=== PATIENT | female | born 1955 | race Caucasian/White ===

== ENCOUNTER 2017-05-07 07:53 | Inpatient (IN) ==
[2017-05-07] MEDS ORDERED: DILTIAZEM 50 MG/10 ML VIAL IV STA (08:27)
[2017-05-07] MEDS ORDERED: DILTIAZEM INJ 100 MG in SODIUM CHLORIDE 0.9% 100 ML IV SCH (08:30)
[2017-05-07] MEDS ORDERED: DILTIAZEM 100 MG VIAL.ADD IV ONE (08:43)
[2017-05-07] MEDS ORDERED: DILTIAZEM 50 MG/10 ML VIAL IV ONE (08:43)
[2017-05-07] MEDS ORDERED: SODIUM CHLORIDE 0.9% 100 ML IV ONE (08:43)
[2017-05-07 09:07] LABS: Basophils # 0.1 10*3/uL (0.0-0.2); Basophils % 0.9 % (0.0-0.8); Eosinophils % 0.6 % (0.00-10.9); Hematocrit 43.4 VOL% (35.7-47.0); Hemoglobin 15.1 GM/DL (12.0-16.0); Immature Granulocytes % 0.2 %; Immature Granulocytes Absolute 0.01 #; Lymphocytes # 1.9 10*3/uL (1.4-4.0); Lymphocytes % 28.9 % (21.3-54.2); Mean Corpuscular HGB Conc 34.8 GM/DL (32-36); Mean Corpuscular Hemoglobin 32 PG (27-34); Mean Corpuscular Volume 91.9 FL (87-102); Mean Platelet Volume 10.7 FL (9.6-12.0); Monocytes # 0.6 10*3/uL (0.11-0.8); Monocytes % 9.4 % (1.7-12.7); Platelet Count 274 T/CUMM (130-400); Red Blood Count 4.72 MC/CUMM (3.8-5.5); Red Cell Distribution Width 12.2 % (9.3-17.3); White Blood Count 6.6 T/CUMM (4-12)
[2017-05-07 09:53] LABS: Alanine Aminotransferase 24 U/L (13-56); Albumin 3.9 G/DL (3.4-5.0); Alkaline Phosphatase 72 U/L (45-117); Aspartate Amino Transferase 21 U/L (0-37); Blood Urea Nitrogen 12 MG/DL (7-18); Calcium 9.2 MG/DL (8.5-10.1); Glucose 99 MG/DL (74-106); Osmolality,Calculated 278.4 MOS/KG (273-304); Potassium 4.8 MMOL/L (3.5-5.1); Sodium 140 MMOL/L (136-145); Total Protein 7.3 G/DL (6.4-8.3); Troponin I Only < 0.015 NG/ML (0.00-0.045)
[2017-05-07] MEDS ORDERED: ONDANSETRON 4 MG/2 ML VIAL IV PRN (10:40)
[2017-05-07] MEDS ORDERED: MAGNESIUM SULF RIDER 2 GM in PREMIX 1 EACH IV PRN (10:40)
[2017-05-07] MEDS ORDERED: MAGNESIUM SULF RIDER 4 GM in PREMIX 1 EACH IV PRN (10:40)
--- NOTE | 2017-05-07 10:40 | Emergency Department Note ---
Braydon Parker Brittany, am scribing for, and in the presence of, Lacho Chance MD 08:30. Robson Parker Doug C, MD, personally performed the services described in this documentation, ascribed by Kavya Bryson in my presence, and it is both accurate and complete . Arrival - Arrival Chief Complaint: Arrhythmia/Palpitations Stated Complaint: rapid heart rate ED Nursing Triage Note: Pt c/o heart racing and feeling tired since yesterday am. Mode of Arrival: Ambulatory Limitations: No Limitations Source: Patient, RN Notes Reviewed Time Seen by Provider: 05/07/17 08:26 - History of Present Illness HPI Narrative: Patient is a 61-year-old white female who presents to the emergency room complaining of palpitations. Patient states she has had trouble with palpitations off and on for the last 6 months most recently had an episode that began 3 days ago. Patient states she was seen here in the emergency room and placed on Eliquis metoprolol and flecainide. Patient states her heart spit up again last night she took an extra dose of metoprolol and flecainide without benefit. She denies any chest pain or shortness of breath but states she feels tired. She has not had any fever, chills or other abnormalities. She denies any weight changes, GI problems or rashes. Onset (ago): day(s) (1) Consistency: constant Allergies/Adverse Reactions: Allergies Allergy/AdvReac Type Severity Reaction Status Date / Time No Known Allergies Allergy Verified 05/23/16 06:20 Home Medications: Home Medications Medication Instructions Recorded Confirmed Type Apixaban [Eliquis] 5 mg PO BID #60 tablet 04/27/17 Rx Flecainide [Tambocor] 50 mg PO BID #60 tablet 04/27/17 Rx Metoprolol Tartrate Tab [Lopressor 25 mg PO BID #60 tablet 04/27/17 Rx Tab] Mirabegron [Myrbetriq] 25 mg PO QAM 04/27/17 04/27/17 History Naproxen Sodium [Aleve] 220 mg PO Q8H PRN 04/27/17 04/27/17 History Review of System - Review of System 12 point system: reviewed and no additional remarkable complaints except as stated - Review of System Constitutional: Absent: chills, fever Eyes: Absent: vision change Head/Ears/Nose/Throat: Absent: nasal drainage, sore throat Respiratory: Absent: respiratory distress Cardiovascular: Present: palpitations. Absent: chest pain Gastrointestinal: Absent: abdominal pain, nausea, vomiting, diarrhea, constipation, melena, hematochezia Genitourinary female: Absent: dysuria, frequency, urgency Musculoskeletal: Absent: arm pain, back pain, leg pain, neck pain Skin: Absent: rash Neurological: Absent: headache Psychiatric: Absent: anxiety, depression Hematological/Lymphatic: Absent: easy bleeding, easy bruising Medical,Surgical,& Family Hx - Medical History Cardio: History of: Cardiac Dysrhythmia (Irregular at times-Neg Checkup with Dr. Zhao) Neurology: No history of: Seizures HEENT: History of: Eye Problem (Cataracts; Glasses), HEENT Problems (Mild Sinus) Respiratory: No history of: Respiratory Problems (Flu Vac 2014) Gastrointestinal: History of: Polyps, Gastrointestinal Cancer (Cancerous Polyp) Musculoskeletal: History of: Musculoskeletal Problems (Arthritis Knees) Reproductive: History of: Reproductive Problems (Vaginal Dryness) Other: History of: Anesthesia Reactions (Nausea), Cancer (Cancerous Polyps) - Surgical History HEENT Surgeries: Patient denies: Eye Surgery (05/23/16 Sched for Lt Eye Dr. Croft) Abdominal Surgeries: Surgical HX of: Abdominal Surgery (Colon Resection 2009; Tummy Tuck; Liposuction), Colonoscopy (x2 Colon Scopes since 2009) - Social History Smoking Status: Never smoker Exam Vital Signs: Vital Signs Temperature 97.0 F L 05/07/17 09:11 Pulse Rate 128 H 05/07/17 09:11 Respiratory Rate 18 05/07/17 09:11 Blood Pressure 100/85 05/07/17 09:11 O2 Sat by Pulse Oximetry 100 05/07/17 09:05 - General General appearance: alert, in no apparent distress - Head Head exam: Present: atraumatic, normocephalic, normal inspection - Eye Eye exam: Present: normal appearance, PERRL, EOMI - ENT ENT exam: Present: normal exam, normal oropharynx - Neck Neck exam: Present: normal inspection, full ROM, trachea midline - Chest Chest inspection: Present: normal inspection, symmetric chest wall rise - Respiratory Respiratory exam: Present: normal lung sounds bilaterally. Absent: respiratory distress - Cardiovascular Cardiovascular exam: Present: normal rhythm, tachycardia, normal heart sounds. Absent: regular rate - Abdominal Exam Abdominal exam: Present: soft, normal bowel sounds. Absent: tenderness - Extremities Exam Extremities exam: Present: normal inspection - Back Exam Back exam: Present: normal inspection - Neurological Exam Neurological exam: Present: alert, oriented X3, CN II-XII intact. Absent: motor sensory deficit - Psychiatric Psychiatric exam: Present: normal affect, normal mood - Skin Skin exam: Present: warm, dry Course Course Narrative: Patient's clinical presentation, laboratory and electrocardiographic findings were discussed with Dr. Henson. Results - Labs CBC & BMP: 05/07/17 08:44 05/07/17 08:44 Lab Results: I have reviewed the patients labs Labs: Laboratory Tests 05/07/17 08:44 WBC 6.6 RBC 4.72 Hgb 15.1 Hct 43.4 Plt Count 274 Baso % (Auto) 0.9 H Laboratory Tests 05/07/17 08:44 Magnesium 2.1 Laboratory Tests 05/07/17 08:44 Sodium 140 Potassium 4.8 Chloride 108 H Carbon Dioxide 26 BUN 12 Creatinine 0.80 Glucose 99 Troponin I < 0.015 TSH 3rd Generation 2.340 - EKG EKG results: interpreted by ERMD EKG shows: tachycardia (Atrial flutter at 127 bpm) - Diagnostic Findings Procedure: Chest x-ray: report reviewed by me (Normal study) Disposition Clinical Impression: Atrial flutter Case discussed with: patient, patient's family Disposition: Still a Patient Condition: Stable Instructions: Atrial Flutter (ED) Time of Disposition: 10:40
[2017-05-07 11:42] LABS: Troponin I Only < 0.015 NG/ML (0.00-0.045)
--- NOTE | 2017-05-07 12:05 | XRay Report ---
Portable chest Exam date: 05/07/2017 8:27 AM Indication: Shortness of breath, cough Comparison: April 27, 2017 Findings: Cardiomediastinal contours are normal. Lungs are clear bilaterally. No acute osseous abnormalities. Visualized upper abdomen demonstrates no acute pathology. Impression: Normal chest PROCEDURE INTERPRETED AT [facility] DEPARTMENT OF RADIOLOGY Final Report Signed by: Ciaran Thompson
[2017-05-07] MEDS: DEXTROSE 5% NACL 0.45% 1,000 ML IV SCH (13:15)
[2017-05-07 14:08] LABS: Troponin I Only < 0.015 NG/ML (0.00-0.045)
--- NOTE | 2017-05-07 17:06 | EKG Report ---
Stationary ECG Study [facility] Test Date: 05/07/2017 9:21:28 AM Pat Name: ENEDINA BEAULIEU Department: Room: 295 Gender: F Research Staff Member: : 1955 Requested by: Murali Tucker Order Number: [id number] Reading MD: MINI AANND Intervals [place] Rate: 55 P: 999 MD: 0 QRS: 61 QRSD: 99 T: 70 QT: 437 QTc: 426 Interpretive Statements ATRIAL FLUTTER WITH CONTROLLED VENTRICULAR RESPONSE Electronically Signed On 05-07-17 20:43:05 CDT by MINI ANAND [email or web address]
[2017-05-07 18:08] LABS: Troponin I Only < 0.015 NG/ML (0.00-0.045)
--- NOTE | 2017-05-07 20:49 | Cardiology History & Physical ---
Assessment and Plan (1) Atrial flutter Status: Acute Assessment and plan: 1. 61-year-old WF with paroxysmal atrial flutter since September 2016, recently diagnosed severe MELODY May 04, 2017, who had palpitations persistently since the morning of October 06 it was noted this morning to have atrial flutter with heart rate in the 120s. Her heart rate was controlled with diltiazem infusion she is now converted to normal sinus rhythm and is asymptomatic. 2. Ms. Sue saw Dr. Napier 10 days ago and she was started on Eliquis and her pindolol was changed to metoprolol 25 mg twice daily with flecainide 50 mils twice daily. 3. Increase metoprolol to 50 mg p.o. 3 times daily, and wean off of diltiazem infusion. 4. Consult Dr. Napier and Dr. Dodson in the morning Current Visit: Yes (2) Sleep disorder Status: Chronic Current Visit: No History of Present Illness Chief complaint: palp History of present illness: Ms. Sue is a 61 year old female followed by Dr. Page for paroxysmal atrial flutter since September 2016. She has had in July she had a knee problem and has been sedentary since that time. She denies significant daytime somnolence but was found to have severe sleep apnea last week with follow-up in June. She has had palpitations off and on lasting up to an hour or so, but had one starting yesterday morning lasted all day long. She called [facility] and was told to go to the emergency room so she called Dr. Page at home who told her to take her medicine early. Her palpitations have resolved so she came to the ER this morning was found to be in atrial flutter with heart rate in the 120s. She started diltiazem infusion and now is feeling better. She actually converted to normal sinus rhythm this evening. She has not had any chest discomfort dizziness presyncope or syncope. She does have some fatigue related to it. She is not having swelling orthopnea. Home Medications Medication Instructions Recorded Confirmed Type Apixaban [Eliquis] 5 mg PO BID #60 tablet 04/27/17 05/07/17 Rx Flecainide [Tambocor] 50 mg PO BID #60 tablet 04/27/17 05/07/17 Rx Metoprolol Tartrate Tab [Lopressor 25 mg PO BID #60 tablet 04/27/17 05/07/17 Rx Tab] Allergies Allergy/AdvReac Type Severity Reaction Status Date / Time No Known Allergies Allergy Verified 05/23/16 06:20 Medical,Surgical,& Family Hx - Medical History Cardio: History of: Cardiac Dysrhythmia (Irregular at times-Neg Checkup with Dr. Zhao) Neurology: No history of: Seizures HEENT: History of: Eye Problem (Cataracts; Glasses), HEENT Problems (Mild Sinus) Respiratory: No history of: Respiratory Problems (Flu Vac 2014) Gastrointestinal: History of: Polyps, Gastrointestinal Cancer (Cancerous Polyp) Musculoskeletal: History of: Musculoskeletal Problems (Arthritis Knees) Reproductive: History of: Reproductive Problems (Vaginal Dryness) Other: History of: Anesthesia Reactions (Nausea), Cancer (Cancerous Polyps) - Surgical History HEENT Surgeries: Patient denies: Eye Surgery (05/23/16 Sched for Lt Eye Dr. Croft) Abdominal Surgeries: Surgical HX of: Abdominal Surgery (Colon Resection 2009; Tummy Tuck; Liposuction), Colonoscopy (x2 Colon Scopes since 2009) - Social History Smoking Status: Never smoker Frequency of Alcohol Use: Occasionally Cardiology Physical Exam - Constitutional Vitals: Vital Signs Temp Pulse Resp BP Pulse Ox 97.9 F 76 18 113/65 94 L 05/07/17 16:00 05/07/17 16:00 05/07/17 16:00 05/07/17 16:00 05/07/17 16:00 Intake and Output 05/07/17 05/07/17 05/07/17 07:59 15:59 23:59 Intake Total 240 / 240 Balance 240 / 240 Intake: Oral 240 / 240 Other: Weight 77.111 kg 77.111 kg Patient Weight 05/07/17 23:59 Weight 77.111 kg General appearance: no acute distress, over weight - Head Head exam: Present: normal inspection, normocephalic, atraumatic - Neck Neck exam: Present: normal inspection - Cardiovascular Cardiovascular exam: Present: regular rate and rhythm. Absent: diastolic murmur , systolic murmur - GI/Abdominal GI/Abdominal exam: Absent: tenderness - Extremities Exam Extremities exam: Absent: edema - Neurological Exam Neurological exam: Present: alert, oriented X3 Result/EKG - Labs CBC & BMP: 05/07/17 08:44 05/07/17 08:44 Labs: Laboratory Results - last 24 hr 05/07/17 05/07/17 05/07/17 08:44 08:44 08:44 WBC 6.6 RBC 4.72 Hgb 15.1 Hct 43.4 MCV 91.9 MCH 32 MCHC 34.8 RDW 12.2 Plt Count 274 MPV 10.7 Neut % (Auto) 60.0 Lymph % (Auto) 28.9 [place] % (Auto) 9.4 Eos % (Auto) 0.6 Baso % (Auto) 0.9 H Neut # (Auto) 4.0 Lymph # (Auto) 1.9 [place] # (Auto) 0.6 Eos # (Auto) 0.0 Baso # (Auto) 0.1 Immature Gran % 0.2 Nucleated RBC % 0.0 Immature Gran # 0.01 Nucleated RBCs # 0.00 Immature Plt Fraction 0.0 Sodium 140 Potassium 4.8 Chloride 108 H Carbon Dioxide 26 Anion Gap 10.8 BUN 12 Creatinine 0.80 GFR Calculation 88 BUN/Creatinine Ratio 15.00 Glucose 99 Calculated Osmolality 278.4 Calcium 9.2 Magnesium 2.1 Total Bilirubin 0.80 AST 21 ALT 24 Alkaline Phosphatase 72 Total Creatine Kinase CK-MB (CK-2) Troponin I < 0.015 Total Protein 7.3 Albumin 3.9 Globulin 3.4 Albumin/Globulin Ratio 1.1 TSH 3rd Generation 2.340 05/07/17 05/07/17 05/07/17 11:00 13:31 16:39 WBC RBC Hgb Hct MCV MCH MCHC RDW Plt Count MPV Neut % (Auto) Lymph % (Auto) [place] % (Auto) Eos % (Auto) Baso % (Auto) Neut # (Auto) Lymph # (Auto) [place] # (Auto) Eos # (Auto) Baso # (Auto) Immature Gran % Nucleated RBC % Immature Gran # Nucleated RBCs # Immature Plt Fraction Sodium Potassium Chloride Carbon Dioxide Anion Gap BUN Creatinine GFR Calculation BUN/Creatinine Ratio Glucose Calculated Osmolality Calcium Magnesium Total Bilirubin AST ALT Alkaline Phosphatase Total Creatine Kinase 57 54 54 CK-MB (CK-2) 1.1 1.0 1.1 Troponin I < 0.015 < 0.015 < 0.015 Total Protein Albumin Globulin Albumin/Globulin Ratio TSH 3rd Generation
[2017-05-07] MEDS ORDERED: APIXABAN 5 MG TABLET PO SCH (21:00)
[2017-05-07] MEDS: METOPROLOL TARTRATE 50 MG TABLET PO SCH (21:58)
[2017-05-07] MEDS: APIXABAN 5 MG TABLET PO SCH (21:59)
[2017-05-07] MEDS: FLECAINIDE 50 MG TABLET PO SCH (21:59)
[2017-05-08] MEDS: DEXTROSE 5% NACL 0.45% 1,000 ML IV SCH ×2 (02:01→16:20)
--- NOTE | 2017-05-08 07:31 | EKG Report ---
Stationary ECG Study [facility] Test Date: 05/08/2017 7:33 AM Pat Name: ENEDINA BEAULIEU Department: Room: 295 Gender: F Quick Service Technician: CRISTINA : 1955 Requested by: Jasvir Thornton Order Number: [id number] Reading MD: TRE BELTRAN Intervals [place] Rate: 59 P: 66 [place]: 232 QRS: 66 QRSD: 103 T: 65 QT: 439 QTc: 438 Interpretive Statements SINUS RHYTHM WITH PROLONGED [place] INTERVAL Electronically Signed On 05-12-17 06:23:38 CDT by TRE BELTRAN [id number]
[2017-05-08] MEDS ORDERED: DIAZEPAM 5 MG TABLET PO ONE (08:30)
[2017-05-08] MEDS: PANTOPRAZOLE 40 MG TABLET PO SCH (08:58)
--- NOTE | 2017-05-08 12:09 | Cardiology Progress Note ---
<Rosana Palmer - Last Filed: 05/08/17 12:05> Assessment and Plan (1) Paroxysmal atrial flutter Status: Chronic Assessment and plan: SEE PLAN OF CARE LISTED BELOW. Current Visit: Yes (2) Chronic anticoagulation Status: Chronic Assessment and plan: SEE PLAN OF CARE LISTED BELOW. Current Visit: Yes (3) Sleep disorder Status: Chronic Assessment and plan: SEE PLAN OF CARE LISTED BELOW. Current Visit: No Cardiology - PN: Subj Interval history: SUMMARY Ms. Sue, 61-year-old female with past medical history of paroxysmal atrial flutter. She presented to [facility] [place] with complaints of palpitations and heart racing. She was noted to be in atrial flutter rapid ventricular response. Metoprolol was added for rate control. She converted on her own May 07, 2017. Dr. Cano was consulted to see patient this hospitalization and plans for ablation 05/08/17. 2016 Patient was seen and examined on the telemetry unit. She converted from atrial flutter to normal sinus rhythm yesterday evening. She is tolerating metoprolol well. She is chronically anticoagulated with Eliquis 5 [address] twice daily. Dr. Cano was consulted to see patient today. He plans to do ablation later today. She is currently n.p.o. She is without complaints. Denies heart racing /palpitations. Denies chest pain, heaviness or tightness. Denies shortness of breath. She is hemodynamically stable. At this point, we will continue with current plan of care. I will further discuss with Dr. Mancera and await his additional recommendations. IMPRESSION AND PLAN: 1. ATRIAL FLUTTER WITH RAPID VENTRICULAR RESPONSE - History of paroxysmal atrial flutter. She has since converted back to normal sinus rhythm. Electrolytes optimized. Plan for ablation today per Dr. Cano. N.p.o. 2. CHRONIC ANTICOAGULATION - Patient is chronically anticoagulated with Eliquis for her atrial flutter. This will be continued for stroke prevention. 3. OBSTRUCTIVE SLEEP APNEA - She has been diagnosed with obstructive sleep apnea. However, she cannot get her CPAP machine until June. Sleep center has been consulted to assist with this. Exam (Progress Note) - Constitutional Vitals: Period Temp Pulse Resp BP Sys/Frey Pulse Ox Last 24 Hr 97.1 F-98.7 F 51-76 16-20 95-113/53-68 94-99 Exam: General: Appears well with no apparent distress. Pleasant and cooperative. Appears comfortable. HEENT: PERRL, normocephalic, atraumatic. Mucous membranes moist. No jaundice noted. Conjunctiva moist and clear, sclerae anicteric Neck: No JVD/HJR, no thyromegaly or lymphadenopathy noted. No carotid bruit appreciated Cardiac: Regular rate and rhythm. No murmur rub or gallop. Lungs: Clear to auscultation without accessory muscle use to assist the respiratory pattern. Not requiring oxygen. Abdomen: Soft, bowel sounds normoactive. Nontender and nondistended. No abdominal bruit or thrill noted. No masses noted. Extremities: No clubbing, cyanosis noted. No edema noted. Upper extremity pulses 2+. Lower extremity pulses 2+. Capillary refill less than 3 seconds. Skin: No unusual lesions or rashes. No skin breakdown appreciated. Neuro: Awake, alert and oriented 3. Moves all extremities well without hemiparesis or paralysis. No essential tremor is appreciated. Result/EKG - Labs CBC & BMP: 05/07/17 08:44 05/07/17 08:44 Lab Results: I have reviewed the past 24 hour labs Labs: Laboratory Results - last 24 hr 05/07/17 05/07/17 13:31 16:39 Total Creatine Kinase 54 54 CK-MB (CK-2) 1.0 1.1 Troponin I < 0.015 < 0.015 Specialty Discharge - Follow Up or Referrals <Zaki Mancera - Last Filed: 05/08/17 19:17> Cardiology - PN: Subj Interval history: Patient personally interviewed and examined chart reviewed. Have reviewed this with Rosana Palmer NP. Patient is stable post ablation this afternoon. She is doing well continue present therapy. Hopefully home soon. Exam (Progress Note) - Constitutional Vitals: Period Temp Pulse Resp BP Sys/Frey Pulse Ox Last 24 Hr 97.1 F-98.7 F 51-73 16-20 95-130/53-73 94-99 Result/EKG - Labs CBC & BMP: 05/07/17 08:44 05/07/17 08:44 Labs: Laboratory Results - last 24 hr 05/08/17 13:18 Urine Color Straw Urine Appearance Clear Urine pH 6.0 Ur Specific Julian 1.008 Urine Protein Negative Urine Glucose (UA) Negative Urine Ketones Negative Urine Blood Small Urine Nitrate Negative Urine Bilirubin Negative Urine Urobilinogen < 2.0 H Urine Leukocytes Negative Urine RBC 1 Urine WBC <1 Ur Squamous Epith Cells Occasional Ur Culture Indicated? Not indicated
--- NOTE | 2017-05-08 12:35 | Sleep Medicine Consult ---
Assessment and Plan (1) Obstructive sleep apnea Status: Acute Assessment and plan: This patient does have moderate obstructive sleep apnea with significant O2 desaturation into the 70s. We will go ahead and initiate auto titration CPAP tonight and see if we can get her best pressure on her. We will go ahead and set her up for auto titration CPAP at discharge. She will be scheduled for follow-up in the sleep clinic for compliance and results. Thank you for this consult. Current Visit: Yes (2) Atrial fibrillation Status: Resolved Assessment and plan: Untreated sleep apnea certainly can contribute to difficulty managing atrial fib. Treating the sleep apnea may help decrease recurrence. Current Visit: No (3) Hypertension Status: Chronic Assessment and plan: The prevalence rate for obstructive sleep apnea patients with hypertension is 35 %. That rate can be as high as 80% in patients who require 4 or more medications for blood pressure control. Current Visit: No History of Present Illness Chief complaint: Obstructive sleep apnea History of present illness: Ms. Sue is a 61 year old female who just recently underwent sleep study evaluation on 05/04/2017 and was found to have moderate obstructive sleep apnea, having a diagnostic AHI of 20.3 with O2 desaturation to lows of 77%. She had been seen in sleep clinic consultation the week prior to that. I ran into her at the [facility] Monday afternoon and reviewed her sleep study with her and her . The next day, she developed issues with atrial fibrillation with rapid ventricular response and was admitted to the hospital. She is set up to undergo ablation today. I reviewed in more detail with her and her her sleep study findings and need for treatment. I discussed going ahead and initiating auto titration CPAP tonight. Home Medications Medication Instructions Recorded Confirmed Type Apixaban [Eliquis] 5 mg PO BID #60 tablet 04/27/17 05/07/17 Rx Flecainide [Tambocor] 50 mg PO BID #60 tablet 04/27/17 05/07/17 Rx Metoprolol Tartrate Tab [Lopressor 25 mg PO BID #60 tablet 04/27/17 05/07/17 Rx Tab] Allergies Allergy/AdvReac Type Severity Reaction Status Date / Time No Known Allergies Allergy Verified 05/23/16 06:20 Review of systems: Otherwise unremarkable from a sleep medicine standpoint. Notable for daytime fatigue and sleepiness. She frequently awakens from dreams. Exam ([place]) H&P - Constitutional Vitals: Period Temp Pulse Resp BP Sys/Frey Pulse Ox Last 24 Hr 97.1 F-98.7 F 51-76 16-20 95-113/53-68 94-99 Exam: She is alert and responsive in no acute distress. Pupils equal round reactive to light and accommodation. Extraocular movements intact. Oropharynx with a class III Mallampati exam. Neck supple without adenopathy or thyromegaly. No supraclavicular adenopathy is noted. Chest with symmetrical breath sounds without focal wheeze, rhonchi, or rales. Cardiac exam reveals regular rhythm without murmur or gallop. Abdomen soft nontender without palpable hepatosplenomegaly or mass. Extremities without clubbing, cyanosis, or edema. Neurologically, she is grossly intact. She moves all extremities with good strength. Medical,Surgical,& Family Hx - Medical History Cardio: History of: Cardiac Dysrhythmia (Irregular at times-Neg Checkup with Dr. Zhao) Neurology: No history of: Seizures HEENT: History of: Eye Problem (Cataracts; Glasses), HEENT Problems (Mild Sinus) Respiratory: No history of: Respiratory Problems (Flu Vac 2014) Gastrointestinal: History of: Polyps, Gastrointestinal Cancer (Cancerous Polyp) Musculoskeletal: History of: Musculoskeletal Problems (Arthritis Knees) Reproductive: History of: Reproductive Problems (Vaginal Dryness) Other: History of: Anesthesia Reactions (Nausea), Cancer (Cancerous Polyps) - Surgical History HEENT Surgeries: Patient denies: Eye Surgery (05/23/16 Sched for Lt Eye Dr. Croft) Abdominal Surgeries: Surgical HX of: Abdominal Surgery (Colon Resection 2009; Tummy Tuck; Liposuction), Colonoscopy (x2 Colon Scopes since 2009) - Social History Smoking Status: Never smoker Frequency of Alcohol Use: Occasionally Results - Labs CBC & BMP: 05/07/17 08:44 05/07/17 08:44 Lab Results: I have reviewed the past 24 hour labs Labs: TSH is within normal limits. Specialty Discharge - Follow Up or Referrals
[2017-05-08] MEDS ORDERED: LIDOCAINE 1% 20 ML VIAL ONE (13:03)
[2017-05-08] MEDS ORDERED: HEPARIN/NACL 0.9% 2 UNITS/ML 500 ML IV ONE (13:03)
--- NOTE | 2017-05-08 13:24 | Electrophysiology Consultation ---
Juan Luis Parker Vanessa RN, am scribing for, and in the presence of, Aristides Cano MD 13 :24. History of Present Illness - Data of Consult Patient: known to practice within the last 3 years Consult date: 05/08/17 Requesting Physician: Jasvir Reeves - Consult Narrative Reason for consult: Recurrence of typical atrial flutter History of present illness: Ms. Sue, 61 year old WF, followed by Dr. Page. PMHx hypertension, paroxysmal atrial fibrillation. She was recently seen in the emergency room on April 27 experiencing palpitations and atrial flutter with RVR. Historically had been maintained on pindolol for several years, had occasional breakthrough palpitations no more than 1 hour, but that day persisted and required IV Cardizem. Upon evaluation, she was noted to have sleep disorder and was set up for sleep evaluation. Pindolol was discontinued. Medical management started with metoprolol and flecainide and Eliquis for anticoagulation. Has since been evaluated with sleep per Dr. Alfonso has been found to have severe sleep apnea. Supposed to follow-up in June for CPAP. Now admitted to telemetry unit after presenting overnight after experiencing palpitations and tachycardia throughout Monday. EKG with atrial flutter RVR 120s-140s. Again received IV Cardizem infusion, and has converted to sinus rhythm. She is not having chest pain, dyspnea, orthopnea, or other. Patient in sinus rhythm this morning and denies any palpitations. CC: Darwin Page MD - Home Medications and Allergies Home Medications: Home Medications Medication Instructions Recorded Confirmed Type Apixaban [Eliquis] 5 mg PO BID #60 tablet 04/27/17 05/07/17 Rx Flecainide [Tambocor] 50 mg PO BID #60 tablet 04/27/17 05/07/17 Rx Metoprolol Tartrate Tab [Lopressor 25 mg PO BID #60 tablet 04/27/17 05/07/17 Rx Tab] Allergies/Adverse Reactions: Allergies Allergy/AdvReac Type Severity Reaction Status Date / Time No Known Allergies Allergy Verified 05/23/16 06:20 Medical,Surgical,& Family Hx - Medical History Cardio: History of: Cardiac Dysrhythmia (PAF, typical atrial flutter) No history of: CHF, CAD Neurology: No history of: Seizures HEENT: History of: Eye Problem (Cataracts; Glasses), HEENT Problems (Mild Sinus) Endocrine: No history of: Diabetes Mellitus (IDDM), Diabetes Mellitus (NIDDM), Dyslipidemia, Thyroid Disorder Rheumatology: No history of;: Fibromyalgia Respiratory: No history of: Asthma, Pulmonary Embolism, Pulmonary Hypertension Renal: No history of: Dialysis, Renal Failure Genitourinary: No history of: Problems Gastrointestinal: History of: Polyps, Gastrointestinal Cancer (Cancerous Polyp) No history of: GERD, Gastrointestinal Bleed Musculoskeletal: History of: Musculoskeletal Problems (Arthritis Knees) No history of: Back/Neck Problems Hematology: No history of: Anemia, Blood Transfusion Reaction, Bleeding Problems, Clotting Problems Reproductive: History of: Reproductive Problems (Vaginal Dryness) Other: History of: Anesthesia Reactions (Nausea), Cancer (Cancerous Polyps) - Surgical History Cardiac Surgeries: Patient Denies: Femoral-Popliteal Bypass Graft, Cardiac Catheterization, Cardiac Surgery HEENT Surgeries: Patient denies: Eye Surgery (05/23/[address] Croft) Abdominal Surgeries: Surgical HX of: Abdominal Surgery (Colon Resection 2009; Tummy Tuck; Liposuction), Colonoscopy (x2 Colon Scopes since 2009) - Social History Smoking Status: Never smoker Frequency of Alcohol Use: Occasionally Marital Status: Lives With:: Spouse Functional capacity: independent ambulation - Constitutional Constitutional: Absent: anorexia, chills, daytime sleepiness, fatigue, fever(s) , weakness, weight gain, weight loss - EENT Eyes: Absent: blurry vision Ears: Absent: decreased hearing Nose, mouth and throat: Absent: dysphagia, nasal congestion, neck pain, sore throat, vertigo - Cardiovascular Cardiovascular: Present: palpitations. Absent: chest pain at rest, chest pain with activity, diaphoresis, dyspnea, dyspnea on exertion, edema, lightheadedness , orthopnea - Respiratory Respiratory: Absent: cough, dyspnea on exertion, change in phlegm color - Gastrointestinal Gastrointestinal: Absent: abdominal pain, constipation, diarrhea, dysphagia, early satiety, melena, nausea, vomiting - Genitourinary Genitourinary: Absent: dysuria, flank pain - Musculoskeletal Musculoskeletal: Present: arthralgias. Absent: limited range of motion, myalgias - Neurological Neurological: Absent: abnormal gait, confusion, dizziness, syncope, tremor(s) - Psychiatric Psychiatric: Absent: anxiety, confusion, depression - Endocrine Endocrine: Absent: cold intolerance, heat intolerance - Hematologic/Lymphatic Hematologic/Lymphatic: Absent: easy bleeding, easy bruising Exam - Constitutional Vitals: Period Temp Pulse Resp BP Sys/Frey Pulse Ox Last 24 Hr 97.0 F-98.7 F 51-128 16-20 95-121/53-86 94-100 General appearance: no acute distress, over weight - Head Head exam: Present: normal inspection. Absent: abrasion, contusion, laceration - Eye Eye exam: Present: EOMI. Absent: periorbital swelling, scleral icterus Pupils: Present: JOSE A. Absent: dilated, irregular - ENT ENT exam: Present: normal external ear exam - Neck Neck exam: Present: normal inspection. Absent: tenderness - Respiratory Respiratory exam: Present: clear to auscultation bilaterally. Absent: rales, rhonchi, wheezes - Cardiovascular Cardiovascular exam: Present: regular rate and rhythm, tachycardia. Absent: bradycardia, JVD, systolic murmur - GI/Abdominal GI/Abdominal exam: Present: normal bowel sounds, soft. Absent: distended, firm , mass, tenderness - Extremities Exam Extremities exam: Present: normal capillary refill. Absent: full ROM, calf tenderness, edema - Back Exam Back exam: Present: normal inspection - Neurological Exam Neurological exam: Present: alert, oriented X3 - Psychiatric Psychiatric exam: Present: normal affect, normal mood. Absent: agitated, anxious - Skin Skin exam: Present: normal color, warm, dry, intact. Absent: abrasion, cyanosis , rash Results - Labs CBC & BMP: 05/07/17 08:44 05/07/17 08:44 Lab Results: I have reviewed the past 24 hour labs - Diagnostic Findings Procedure: Chest x-ray: image reviewed by me, report reviewed by me (05/07/17: No infiltrate, pneumothorax, or effusion) Assessment and Plan - Time spent with patient Time spent with patient: Greater than 30 minutes (1) Atrial flutter Status: Acute Assessment and plan: 61 year old WF, PMHx paroxysmal atrial fibrillation and recently diagnosed with severe sleep apnea. Managed medically for several years on Pindolol. Recently presented to ER with atrial fibrillation/flutter with RVR requiring IV Cardizem with conversion to sinus rhythm. Started on beta deepak, flecainide, and anticoagulant. Returns now with palpitations and recurrent typical atrial flutter RVR. Now converted with IV Cardizem. EKG: SR 60s Echo: LVEF 55%, mild RA enlargement in November 2016 -Discussed risks and benefits of management options. The atrial flutter flutter is recurrent, and was refractory to medical management. We will proceed with EP study/ablation, under general anesthesia. -NPO. ANesthesia consult -Will continue Eliquis 5 mg twice daily, may discontinue later, if no recurrence of flutter.. CHADSVASC 2. -MELODY- severe. Discussed with Dr. Alfonso, he will start nocturnal CPAP during this hospital stay. Current Visit: No Qualifiers: Atrial flutter type: typical Qualified Code(s): I48.3 - Typical atrial flutter (2) Sleep disorder Status: Chronic Assessment and plan: SEE PLAN OF CARE LISTED ABOVE. Current Visit: No (3) Hypertension Status: Chronic Assessment and plan: SEE PLAN OF CARE LISTED ABOVE. Current Visit: No Specialty Discharge - Follow Up or Referrals Jerome Parker Attila, MD, personally performed the services described in this documentation, ascribed by Yanique Mcknight RN in my presence, and it is both accurate and complete [id number] .
[2017-05-08] MEDS ORDERED: HEPARIN/NACL 0.9% 2 UNITS/ML 1,000 ML IV ONE (13:25)
--- NOTE | 2017-05-08 13:27 | History and Physical Update ---
Sedation H&P Update - History and Physical H&P was reviewed, the patient examined and there: are no changes in the patients condition since last H&P was completed. - Dictation Physical: refer to H&P completed by admitting physician - Physical Exam Mental Status: alert and oriented Heart: regular rate and rhythm Lung: clear to auscultation Abdomen: within normal limits Vitals: within normal limits - Sedation Plan for Sedation: MAC Patient Consent: Procedure disscussed with patient and patinet has consented., Risks and benefits were discussed with patient,including infection,, bleeding, injury to surrounding structures, seizure, temporary nerve, Patient understands and accepts potential risks/benefits and agrees to ASA Class: IV Airway Assessment: Class II: Soft palate, uvula, fauces visible
[2017-05-08 13:33] LABS: Apearance,Urine CLEAR (Clear); Bilirubin,Urine Negative (Negative); Blood, Urine Small mg/dL (Negative); Glucose,Urine (UA) Negative (Negative); Ketones,Urine Negative (Negative); Nitrite,Urine Negative (Negative); Protein,Urine Negative; RBC,Urine 1 /HPF (0-4); Squamous Epithelial Cell,Urine Occasional /HPF (0-10); Urine Color Straw (Yellow); Urine Specific Gravity 1.008 (1.001-1.035); Urine Urobilinogen < 2.0 EU/DL (0.2-1.0); WBC,Urine <1 /HPF (0-6)
[2017-05-08] MEDS ORDERED: ADENOSINE 6 MG/2 ML VIAL ONE ×2 (14:17→14:19)
[2017-05-08] MEDS ORDERED: ASPIRIN EC 325 MG TABLET PO ONE (14:35)
[2017-05-08] MEDS ORDERED: oxyCODONE/ACETAMINOPHEN 5-325 MG TABLET PO PRN (14:35)
[2017-05-08] MEDS ORDERED: ZALEPLON 5 MG CAPSULE PO PRN (14:35)
--- NOTE | 2017-05-08 15:03 | Electrophysiology Report ---
Date of Procedure:: 05/08/17 Pre-op diagnosis: Atrial flutter Post-op diagnosis: same Procedure: PROCEDURAL SUMMARY EP study with ablation of typical atrial flutter (cavotricuspid isthmus linear lesion). Successful procedure, no complications. PLAN Bed rest for 4 hours. ASA 325 mg now, then 81 mg qd for 30 days Continue Eliquis 5 mg bid DIAGNOSES Paroxysmal typical atrial flutter MELODY PROCEDURE REPORT A timeout was performed before the procedure. Anesthesia General anesthesia was provided by the anesthesiology service. Anticoagulation Iv. heparin 5000U was administered before the ablation. She was anticoagulated with Eliquis. Access The Seldinger technique was performed utilizing a 21 gauge micropuncture needle and 0.[address] the following sheaths. RFV: 8 Fr - -Ablation catheter: Straker Translations bidirectional RA, His, RV recording, pacing and ablation. RFV: 8 Fr - -Decapolar deflectable CS catheter - CS recording and pacing RFV: 5 Fr - -Diagnostic Quad catheter RA recording and pacing Electrophysiologic Study - baseline Baseline ECG: Junctional rhythm, RR 991, QRS 91, QT 453. The catheters were introduced under electroanatomical guidance. A 3D fast anatomical map of the right atrium was constructed with CARTO. The CS and His positions were marked. During mapping, sinus rhythm and junctional rhythm was observed. During sinus rhythm, AH 118, HV 43. No VA conduction. AV Wenckebach 390 ms. Anterograde conduction decremental, concentric. At 600/350 programmed atrial extra stimulation, and increase in the AH interval from 275 to 391 ms was noted. Thereafter, single typical A-V dimple echo beats were observed. AERP 600/260. Burst proximal CS stimulation at 280 ms induced atrial flutter, with variable morphology, with transient atrial fibrillation, which then stabilized into typical flutter. Cycle [id number] ms, proximal to distal CS activation sequence. Entrainment from proximal CS: PPI 260, TCL 290 ms. Entrainment from distal CS: PPI 356, TCL 303 ms. The arrhythmia mechanism was concluded as sustained typical atrial flutter. Nonsustained atrial flutter and atrial fibrillation was observed, which then transformed into typical atrial flutter. As clinically the patient had only documented typical atrial flutter, we proceeded with ablation of this arrhythmia. Ablation CTI lesion Using electrical and CARTO 3D guidance, lesions were delivered in the caval tricuspid isthmus region, with 40 W energy, during atrial flutter. The flutter broke during ablation, with increase in the cycle length before it terminated. Activation map was performed using CARTO., during proximal CS pacing. There was still conduction across the CTI line. Further lesions were delivered, on the persistent bidirectional block was achieved. Follow up EP study, EP study during drug infusion Proximal CS to lateral low atrial delay 166 ms,lateral low atrial to proximal CS delay 190 ms. During proximal CS pacing, 12 mg of IV adenosine was injected. Transient AV block was observed, without change in atrial activation sequence or CTI block. During lateral low atrial pacing, 12 mg of IV adenosine was injected. Transient AV block was observed, without change in atrial activation sequence or CTI block. No VA conduction. AV Wenckebach 320 ms. Anterograde conduction decremental, concentric. AV dimple ERP 600/290 ms. AH jump, without echoes. AH 91, Hb 31 ms. End of the procedure The catheters were removed and the sheaths were pulled. Manual compression was applied until hemostasis was achieved. There were no complications. PROCEDURE(S) 1. Comprehensive electrophysiologic evaluation including insertion and repositioning of multiple electrode catheters with induction or attempted induction of an arrhythmia with right atrial pacing and recording, right ventricular pacing and recording (when necessary), His bundle recording (when necessary) with intracardiac catheter ablation of arrhythmogenic focus; with treatment of supraventricular tachycardia by ablation of fast or slow atrioventricular pathway, accessory atrioventricular connection, cavo-tricuspid isthmus or other single atrial focus or source of atrial re-entry 2. Programmed stimulation and pacing after intravenous drug infusion 3. Intracardiac electrophysiologic three-dimensional mapping Anesthesia: general Surgeon / Physician: Aristides Cano Magisterial District Judge: other (Andres) Estimated blood loss: minimal Specimens: none sent Condition: stable Disposition: floor
--- NOTE | 2017-05-08 15:26 | EKG Report ---
Stationary ECG Study [facility] Test Date: 05/08/2017 3:28:52 PM Pat Name: ENEDINA BEAULIEU Department: Room: 295 Gender: F Employment Office Clerk: : 1955 Requested by: Aristides Cano Order Number: [id number] Reading MD: TRE BELTRAN Intervals [place] Rate: 66 P: 59 KS: 197 QRS: 51 QRSD: 101 T: 53 QT: 434 QTc: 448 Interpretive Statements SINUS RHYTHM Electronically Signed On 05-12-17 06:41:12 CDT by TRE BELTRAN [email or web address]
--- NOTE | 2017-05-08 15:28 | Anesthesia Post-Op ---
Anesthesia Post OP - Post Ansesthetic Evaluation Patient seen in post op: Yes Resp: within normal limits CV: within normal limits Mental: within normal limits Temp: within normal limits [place]-Im-[id number]: within normal limits Nausea and Vomiting: within normal limits Pain: within normal limits
[2017-05-08] MEDS ORDERED: PROPOFOL 200 MG/20 ML VIAL IV ONE (15:31)
[2017-05-08] MEDS ORDERED: fentaNYL 100 MCG/2 ML VIAL ONE (15:32)
[2017-05-08] MEDS ORDERED: SEVOFLURANE 1 UNIT/15 MINUTE INH ONE (15:32)
[2017-05-08] MEDS ORDERED: MIDAZOLAM 2 MG/2 ML VIAL ONE (15:32)
[2017-05-08] MEDS ORDERED: ePHEDrine 50 MG/ML AMP ONE (15:32)
[2017-05-08] MEDS ORDERED: DESFLURANE 1 UNIT/15 MINUTE INH ONE (15:32)
[2017-05-08] MEDS ORDERED: ROCURONIUM 100 MG/10 ML VIAL IV ONE (15:33)
[2017-05-08] MEDS ORDERED: LACTATED RINGERS 1,000 ML IV ONE (15:33)
[2017-05-08] MEDS ORDERED: ETOMIDATE 20 MG/10 ML VIAL IV ONE (15:33)
[2017-05-08] MEDS ORDERED: NEOSTIGMINE 10 MG/10 ML VIAL ONE (15:33)
[2017-05-08] MEDS ORDERED: ONDANSETRON 4 MG/2 ML VIAL ONE (15:33)
[2017-05-08] MEDS ORDERED: GLYCOPYRROLATE 0.4 MG/2 ML VIAL ONE (15:33)
[2017-05-08] MEDS: FLECAINIDE 50 MG TABLET PO SCH (16:20)
[2017-05-08] MEDS: METOPROLOL TARTRATE 50 MG TABLET PO SCH ×2 (16:20→21:01)
[2017-05-08] MEDS: APIXABAN 5 MG TABLET PO SCH ×2 (16:30→21:00)
[2017-05-09 05:23] LABS: Basophils % 0.1 % (0.0-0.8); Hematocrit 36.3 VOL% (35.7-47.0); Immature Granulocytes % 0.4 %; Immature Granulocytes Absolute 0.04 #; Lymphocytes % 10.7 % (21.3-54.2); Mean Corpuscular HGB Conc 34.7 GM/DL (32-36); Mean Corpuscular Hemoglobin 32 PG (27-34); Mean Corpuscular Volume 93.1 FL (87-102); Mean Platelet Volume 11.2 FL (9.6-12.0); Monocytes # 0.3 10*3/uL (0.11-0.8); Monocytes % 3.1 % (1.7-12.7); Neutrophils # 7.8 10*3/uL (1.4-7.4); Neutrophils % 85.7 % (38.7-73.9); Platelet Count 227 T/CUMM (130-400); Red Cell Distribution Width 12.2 % (9.3-17.3)
[2017-05-09 05:25] LABS: Hemoglobin 12.6 GM/DL (12.0-16.0); White Blood Count 9.1 T/CUMM (4-12)
[2017-05-09 05:44] LABS: Calcium 8.9 MG/DL (8.5-10.1); Magnesium 2.2 MG/DL (1.8-2.4); Osmolality,Calculated 280.3 MOS/KG (273-304); Potassium 4.3 MMOL/L (3.5-5.1)
[2017-05-09] MEDS: PANTOPRAZOLE 40 MG TABLET PO SCH (08:57)
[2017-05-09] MEDS: METOPROLOL TARTRATE 50 MG TABLET PO SCH (08:57)
[2017-05-09] MEDS: APIXABAN 5 MG TABLET PO SCH (08:58)
[2017-05-09] MEDS ORDERED: ASPIRIN EC 81 MG TABLET PO SCH (09:00)
[2017-05-09 11:22] VITALS: BP 138/77
--- NOTE | 2017-05-09 12:12 | Electrophysiology Progress Not ---
Juan Luis Parker Vanessa, RN, am scribing for, and in the presence of, Aristides Cano MD 12 :12. Assessment and Plan - Time spent with patient Time spent with patient: Greater than 30 minutes (1) Atrial flutter Status: Resolved Assessment and plan: 61 year old WF, PMHx paroxysmal atrial fibrillation and recently diagnosed with severe sleep apnea. Managed medically for several years on Pindolol. Recently presented to ER with atrial fibrillation/flutter with RVR requiring IV Cardizem with conversion to sinus rhythm. Started on beta deepak, flecainide, and anticoagulant. Returns now with palpitations and recurrent typical atrial flutter RVR. Now converted with IV Cardizem. EKG: SR 60s Echo: LVEF 55%, mild RA enlargement in November 201605/08: Typical AFl ablatin - CTI line -Post successful and uneventful EP study and atrial flutter ablation -No recurrence of AFL/AF or other arrhythmia -MELODY- severe. Dr. Alfonso started nocturnal CPAP and titration during admission. Follow up with him in sleep clinic. -Will continue Eliquis 5 mg twice daily, may discontinue later, if no recurrence of flutter. CHADSVASC 2. -Continue aspirin for 30 days. Continue beta-deepak, flecainide was stopped. -Continue Eliquis. -FU for groin check in 2 weeks Current Visit: No Qualifiers: Atrial flutter type: typical Qualified Code(s): I48.3 - Typical atrial flutter (2) Sleep disorder Status: Chronic Assessment and plan: SEE PLAN OF CARE LISTED ABOVE. Current Visit: No (3) Hypertension Status: Chronic Assessment and plan: SEE PLAN OF CARE LISTED ABOVE. Current Visit: No Electrophysiology Subjective Interval history: Stable overnight. No recurrence of atrial flutter, a-fib, or other dysrhythmia. No chest pain, shortness of breath, or other complaint. She has been up ambulating in room and in arce. No right groin discomfort. Site is soft, no bleed or hematoma. Exam - Constitutional Vitals: Period Temp Pulse Resp BP Sys/Frey Pulse Ox Last 24 Hr 97.1 F-98.4 F 55-76 16-20 98-130/52-73 93-98 Exam: General appearance: no acute distress, over weight - Head Head exam: Present: normal inspection. Absent: abrasion, contusion, laceration - Eye Eye exam: Present: EOMI. Absent: periorbital swelling, scleral icterus Pupils: Present: JOSE A. Absent: dilated, irregular - ENT ENT exam: Present: normal external ear exam - Neck Neck exam: Present: normal inspection. Absent: tenderness - Respiratory Respiratory exam: Present: clear to auscultation bilaterally. Absent: rales, rhonchi, wheezes - Cardiovascular Cardiovascular exam: Present: regular rate and rhythm, tachycardia. Absent: bradycardia, JVD, systolic murmur - GI/Abdominal GI/Abdominal exam: Present: normal bowel sounds, soft. Absent: distended, firm , mass, tenderness - Extremities Exam Extremities exam: Present: normal capillary refill. Absent: full ROM, calf tenderness, edema. Right groin access site soft with no bleed or hematoma. - Back Exam Back exam: Present: normal inspection - Neurological Exam Neurological exam: Present: alert, oriented X3 - Psychiatric Psychiatric exam: Present: normal affect, normal mood. Absent: agitated, anxious - Skin Skin exam: Present: normal color, warm, dry, intact. Absent: abrasion, cyanosis , rash Results - Labs CBC & BMP: 05/09/17 04:24 05/09/17 04:24 Lab Results: I have reviewed the past 24 hour labs - EKG EKG results: WNL, sinus rhythm EKG shows: sinus rhythm Specialty Discharge - Follow Up or Referrals Follow up with: Aristides Cano MD [Physician] - 2 Weeks (Follow-up post atrial flutter ablation; review medications, will need EKG) I, Aristides Cano MD, personally performed the services described in this documentation, ascribed by Yanique Mcknight RN in my presence, and it is both accurate and complete .
--- NOTE | 2017-05-09 12:16 | Discharge Summary ---
Juan Luis Parker Vanessa, RN, am scribing for, and in the presence of, Zaki Mancera MD 12:16. Hospital Course - Hospital Course Hospital Course: Ms. Sue, 61-year-old WF, PMHx hypertension, paroxysmal atrial fibrillation and most recently atrial flutter. She has also been recently diagnosed with severe obstructive sleep apnea. Prior to this admission, she was evaluated in ED on April 27 with the palpitations and atrial flutter with RVR. She required IV Cardizem, did convert to sinus rhythm, and her medications were adjusted to include beta-deepak and flecainide. Previous echo in November 2016 with LVEF 55%, mild RA enlargement. Represented to [place] ED May 07 with recurrent typical atrial flutter with RVR, refractory to medical management. Again required IV Cardizem with conversion to sinus rhythm. Electrophysiology consulted, and patient was taken for EP study and ablation of typical atrial flutter, under general anesthesia. Procedure was successful without complication. She was closely monitored overnight on telemetry. No recurrence of atrial arrhythmia or other sustained dysrhythmia. Vital signs have been stable. Patient has been out of bed this morning, ambulated around room, and has had no right groin discomfort, chest pain, shortness of breath, palpitations, or other. She is stable for discharge home today. Will need to follow up with Dr. Cano in clinic in 2 weeks and have EKG also. Continue metoprolol, low dose ASA, and Eliquis at discharge and will discuss care home medical management at follow up appointment with Dr. Cano. Dr. Alfonso also consulted this admission for nocturnal CPAP and auto titration. Patient will follow up with with sleep clinic after discharge for compliance and results. - Time spent with patient Time with patient DS: Greater than 30 minutes Diagnosis - Discharge Diagnosis (1) Atrial flutter Status: Resolved (2) Sleep disorder Status: Chronic (3) Hypertension Status: Chronic Specialty Discharge - Follow Up or Referrals Follow up with: Aristides Cano MD [Physician] - 05/23/17 1:10 pm (Follow-up post atrial flutter ablation; review medications, will need EKG) Discharge Plan - Discharge Data Disposition: Disch To Home/Self Care Condition at Discharge: Stable Discharge Diet: advance to your usual diet Activity: resume usual activities as tolerated, other (No heavy lifting, straining, pulling for 3 days) Hygiene: may shower Weight Bearing at Discharge: full weight bearing Driving: not until seen by doctor Contact your physician if you experience:: fever over 101, Difficulty voiding, Redness or swelling, Nausea/Vomiting, Shortness of breath, Bleeding, pain uncontrolled by pain medications - Discharge Medications New Metoprolol Tartrate Tab [Lopressor Tab] 50 mg PO BID #60 tablet Aspirin EC Tab 81 mg PO DAILY #30 tablet Continue Apixaban [Eliquis] 5 mg PO BID #60 tablet Discontinued Flecainide [Tambocor] 50 mg PO BID #60 tablet Metoprolol Tartrate Tab [Lopressor Tab] 25 mg PO BID #60 tablet - Follow Up or Referral Follow Up: Aristides Cano MD [Physician] - 05/23/17 1:10 pm (Follow-up post atrial flutter ablation; review medications, will need EKG) - Forms/Instructions Instructions: Atrial Flutter (ED), Cardiac Ablation (DC) Exam - Constitutional Vitals: Period Temp Pulse Resp BP Sys/Frey Pulse Ox Last 24 Hr 97.1 F-98.4 F 55-76 16-20 98-130/52-73 93-98 Discharge Results Procedures and tests throughout hospitalization: Pending Orders 05/10/17 04:00 BMP w/ Mg [Basic Metabolic Panel w/Mg] IN AM CBC [Comp Blood Count Auto Diff] IN AM 05/11/17 04:00 BMP w/ Mg [Basic Metabolic Panel w/Mg] IN AM CBC [Comp Blood Count Auto Diff] IN AM 05/12/17 04:00 BMP w/ Mg [Basic Metabolic Panel w/Mg] IN AM CBC [Comp Blood Count Auto Diff] IN AM Labs on day of discharge: Labs from last 24 hours 05/09/17 05/09/17 05/08/17 04:24 04:24 13:18 WBC 9.1 D RBC 3.90 Hgb 12.6 D Hct 36.3 MCV 93.1 MCH 32 MCHC 34.7 RDW 12.2 Plt Count 227 MPV 11.2 Neut % (Auto) 85.7 H Lymph % (Auto) 10.7 L [place] % (Auto) 3.1 Eos % (Auto) 0.0 Baso % (Auto) 0.1 Neut # (Auto) 7.8 H Lymph # (Auto) 1.0 L [place] # (Auto) 0.3 Eos # (Auto) 0.0 Baso # (Auto) 0.0 Immature Gran % 0.4 Nucleated RBC % 0.0 Immature Gran # 0.04 Nucleated RBCs # 0.00 Immature Plt Fraction 0.0 Sodium 141 Potassium 4.3 Chloride 107 Carbon Dioxide 25 Anion Gap 13.3 BUN 10 Creatinine 0.70 GFR Calculation 103 BUN/Creatinine Ratio 14.00 Glucose 111 H Calculated Osmolality 280.3 Calcium 8.9 Magnesium 2.2 Urine Color Straw Urine Appearance Clear Urine pH 6.0 Ur Specific [place] 1.008 Urine Protein Negative Urine Glucose (UA) Negative Urine Ketones Negative Urine Blood Small Urine Nitrate Negative Urine Bilirubin Negative Urine Urobilinogen < 2.0 H Urine Leukocytes Negative Urine RBC 1 Urine WBC <1 Ur Squamous Epith Cells Occasional Ur Culture Indicated? Not indicated - Imaging and Cardiology Cardiology Procedure: image reviewed by me, report reviewed by me DS: Provider Attending physician on admission: Moreno Mancera MD Consults: 05/08/17 07:02 Consult to Physician [CONS] Routine Comment: pt known to you with recurrent aflutter Consulting Provider: Aristides Cano Person Notified: Holly Date Notified: 05/08/17 Time Notified: 08:00 05/08/17 07:03 Consult to Sleep Center [CONS] Routine Reason for Sleep Center: Sleep Center Physician Consult Comment: pt with MELODY, study performed May 04, has recurrent aflutter Discharging clinician: Moreno Mancera MD Expected date of discharge: 05/09/17 Calderon Parker John Timothy, MD, personally performed the services described in this documentation, ascribed by Yanique Mcknight RN in my presence, and it is both accurate and complete [id number] .
--- NOTE | 2017-05-09 13:04 | Sleep Medicine Progress Note ---
Assessment and Plan (1) Obstructive sleep apnea Status: Acute Assessment and plan: Patient will get refitted with a CPAP mask today and will be set up to receive CPAP equipment and supplies at discharge. She will follow-up in the sleep clinic in 4-6 weeks for compliance. Thank you for the consult. Current Visit: Yes (2) Hypertension Status: Chronic Current Visit: No Sleep Medicine Subjective Interval history: Patient did well with auto titration CPAP last night. She slept with it over 5 hours and was comfortable with it. Her average device pressure was almost 9 cm and her AHI was 5.3. She did express some discomfort with a full facemask. I would like to have her come down to the sleep lab today prior to discharge to be fitted with a mask so that we can be specific about her CPAP prescription and supplies to her [employer] company. We will schedule follow-up in the sleep clinic. Exam (Progress Note) - Constitutional Vitals: Period Temp Pulse Resp BP Sys/Frey Pulse Ox Last 24 Hr 97.1 F-98.4 F 55-76 16-20 98-138/52-77 93-97 Exam: Patient is alert and responsive in no acute distress. She answered all questions appropriately. Results - Labs CBC & BMP: 05/09/17 04:24 05/09/17 04:24 Lab Results: I have reviewed the past 24 hour labs Specialty Discharge - Follow Up or Referrals Follow up with: Aristides Cano MD [Physician] - 05/23/17 1:10 pm (Follow-up post atrial flutter ablation; review medications, will need EKG)
== END 2017-05-09 13:29 | disposition home or self-care (01) | DRG 274 ==
LOC: N.ED 07:53 → N.EDINP 10:40 → N.TELEN 11:54
PROVIDERS: ADMIT Internal Medicine Cardiovascular Disease; ATTEND Internal Medicine Cardiovascular Disease